=== PATIENT | female | born 1970 | race Caucasian/White ===

== ENCOUNTER 2017-04-09 03:48 | Observation (INO) | payer MEDICAID, OTHER ==
[~2017-04-09] VITALS: Ht 167.6 cm; Wt 65.0 kg
[~2017-04-09 03:48] MED LIST: ALBU8I INH; BUPR-197 PO; CLON0.5T PO; GABA100C4 PO; KETO10 PO; LORA10TA PO; OMEP20TA PO; ROBA750T3 PO; VICOTAB4 PO
[2017-04-09 03:52] VITALS: BP 177/90; PULSE 75; RESP 16; TEMP 97.6; O2SAT 100
[2017-04-09 04:17] VITALS: BP 158/79; PULSE 72; TEMP 98; O2SAT 99
[2017-04-09] MEDS ORDERED: OMEP20TA PO (04:32)
[2017-04-09] MEDS ORDERED: NEUR100C PO (04:32)
[2017-04-09] MEDS ORDERED: LEVO.075 PO (04:32)
[2017-04-09] MEDS ORDERED: HYDR7.5T76 PO (04:32)
[2017-04-09] MEDS ORDERED: VENTOLIN INH (04:32)
[2017-04-09] MEDS ORDERED: CLON1TAB PO (04:32)
[2017-04-09] MEDS ORDERED: BUPR100T4 PO (04:32)
[2017-04-09] MEDS ORDERED: CLAR10CA3 PO (04:32)
[2017-04-09] MEDS ORDERED: ROBA750T PO (04:32)
[2017-04-09] MEDS ORDERED: ASPIRIN 81 MG CHEW TAB CHEW ONE (04:45)
[2017-04-09] MEDS ORDERED: SODIUM CHLOR 0.9% 1000 ML INJ 1,000 ML IV ONE (04:45)
[2017-04-09] MEDS ORDERED: ONDANSETRON HCL 4 MG/2 ML VIAL IV ONE (04:45)
--- NOTE | 2017-04-09 04:57 | PD ---
HPI Chief Complaint: Chest Pain Time Seen by Provider: 04:29 Travel History International Travel<30 days: No Contact w/Intl Traveler<30days: No Traveled to known affect area: No History of Present Illness HPI The patient is a 46 year old female who presents to the [facility] emergency department with a history of chest pain that she reports awoke her from sound sleep at 2 AM this morning. She reports that the pain is in the left side of her chest. She reports that it is worse with taking a deep breath or touching the area. She denies any trauma to the area or any specific injury that she can recall. She does however incidentally reports that she may have been exposed to methamphetamine. 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 She reports that her client told her that the police came to the client's house 2-3 weeks ago and arrested people who were running a meth lab out of her garage. Her client was reportedly renting her garage out to these people. The patient reports that she did not cleaning the garage. She cleaned the house itself. She reports that she was in the house from 12 noon to 9 PM yesterday. She cleaned the client's kitchen and was concerned later that she did notice that there was a white powdery substance on the counters. She reports that her chest pain has been coming and going since awakening with it. She denies having any history of heart disease. She does however report having a history of hyperlipidemia. She denies any shortness of breath, diaphoresis, nausea, vomiting associated with this. Eyes having any radiation of the pain. She does incidentally report having diarrhea 2 days ago, 10 times in one day. She reports that she did have a formed bowel movement today. She denies having any blood in her stool or black or tarry stools. The patient denies any known recent fevers, cough, congestion, neck pain, abdominal pain, urinary symptoms, or neurologic symptoms. FORMERLY [facility] Past Medical History Narrative Medical The patient's past medical history is significant for fibromyalgia, tendonitis right elbow, anxiety and depression, arthritis, asthma, and acid reflux. PMD: Dr. Garcia. Arthritis: Yes Asthma: Yes Autoimmune Disease: Yes (FIBROMYALGIA) Bipolar Disorder: Yes Anxiety: Yes Depression: Yes Dementia: Yes Diabetes: No Diminished Hearing: No Fibromyalgia: Yes GERD: Yes Kidney Stones: Yes Musculoskeletal: Yes (CHRONIC BACK PAIN,DDD) Neurologic: Yes (fibromyalgia) Psychiatric: Yes ("MOOD SWINGS") Respiratory: Yes (ASHTMA) Integumentary: Yes (SHINGLES) Immunizations Current: Yes (HEPATITIS B 1-09) Pneumonia: Yes Triglycerides - High: Yes Tetanus Vaccination: < 5 Years Influenza Vaccination: No ?: Not LMP: now 04/09/17 : 4 Para: 3 Miscarriage: 1 : 0 Ovarian Cysts: Yes Past Surgical History Narrative Surgical cholecystectomy. Cholecystectomy: Yes Oral Surgery: Yes Social History Alcohol Use: Yes ("VERY RARELY") Tobacco Use: Yes (1 PPD) Substance Use: No Allergies-Medications (Allergen,Severity, Reaction): Coded Allergies: Flagyl (Verified Allergy, Severe, Anaphylaxis, 04/09/17) Morphine (Unverified Allergy, Severe, Itching, 04/09/17) Flexeril (Verified Adverse Reaction, Severe, VOMITING, 04/09/17) Naprosyn (Verified Adverse Reaction, Severe, VOMITING, 04/09/17) Erythromycin (Verified Adverse Reaction, Intermediate, UPSETS STOMACH, ) Reported Meds & Prescriptions Reported Meds & Active Scripts Active Reported Hydrocodone-Ibuprofen 7.5-200 Mg Tab 1 Tab PO Q6H PRN Clonazepam 1 Mg Tab 1 Mg PO BID Bupropion HCl 100 Mg Tab 150 Mg PO BID Neurontin (Gabapentin) 100 Mg Cap 100 Mg PO TID Claritin (Loratadine) 10 Mg Cap 10 Mg PO DAILY Omeprazole 20 Mg Tab 20 Mg PO DAILY Robaxin (Methocarbamol) 750 Mg Tab 1,500 Mg PO TID [Ventolin Hfa] 2 Puff INH Q4HR Synthroid (Levothyroxine Sodium) 75 Mcg Tab 75 Mcg PO DAILY Review of Systems Except as stated in HPI: all other systems reviewed are Neg General / Constitutional: No: Fever Eyes: No: Visual changes HENT: No: Headaches Cardiovascular: Positive: Chest Pain or Discomfort, Dyspnea on exertion Respiratory: No: Shortness of Breath Gastrointestinal: Positive: Diarrhea (2 days ago.), Indigestion, No: Nausea, Vomiting, Abdominal Pain Genitourinary: No: Dysuria Musculoskeletal: No: Pain Skin: Positive Itching, No Rash Neurologic: No: Weakness Psychiatric: No: Depression Endocrine: No: Polydipsia Hematologic/Lymphatic: No: Easy Bruising Physical Exam Narrative General: The patient is a well-developed well-nourished female in no acute distress.. Head and Neck exam: Head is normocephalic atraumatic. Eyes: EOMI, pupils are equal round and reactive to light. Nose: Midline septum with pink mucous membranes Mouth: Dentition unremarkable. Moist mucus membranes. Posterior oropharynx is not erythematous. No tonsillar hypertrophy. Uvula midline. Airway patent. Neck: No palpable lymphadenopathy. No nuchal rigidity. No thyromegaly. Cardiovascular: Regular rate and rhythm without murmurs, gallops, or rubs. The patient has chest wall tenderness on palpation the left side of her chest wall at the sternal border upper aspect. Wrist no crepitus or step-off. No erythema or ecchymosis. No pulse deficit to the extremities. Lungs: Clear to auscultation bilaterally. No wheezes, rhonchi, or rales. Abdomen: Soft, without tenderness to palpation in all 4 quadrants of the abdomen. No guarding, rebound, or rigidity. Negative Derry sign. Extremities: No clubbing, cyanosis, or edema. 2+ pulses in all 4 extremities. Back: No spinous process tenderness to palpation. No costovertebral angle tenderness to palpation. Neurologic Exam: Cranial nerves 2-12 were intact on exam. Strength is 5/5 in all 4 extremities. No sensory deficits noted. No dysdiadochokinesis. Good finger to nose and Heel to reid bilaterally. Skin Exam: No rash noted. Intact skin that is warm and dry. Data Data Last Documented VS Vital Signs Date Time Temp Pulse Resp B/P Pulse Ox O2 Delivery O2 Flow Rate FiO2 04/09/17 06:21 Room Air 04/09/17 04:20 98 04/09/17 04:17 98.0 72 158/79 04/09/17 03:52 16 Orders Complete Blood Count With Diff (04/09/17 04:31) Comprehensive Metabolic Panel (04/09/17 04:31) Creatine Kinase (Cpk) (04/09/17 04:31) Ckmb (Isoenzyme) Profile (04/09/17 04:31) Troponin I (04/09/17 04:31) Urinalysis - C+S If Indicated (04/09/17 04:31) Magnesium (Mg) (04/09/17 04:31) Chest, Single Ap (04/09/17 04:31) Iv Access Insert/Monitor (04/09/17 04:31) Ecg Monitoring (04/09/17 04:31) Oximetry (04/09/17 04:31) Ed Urine Pregnancytest Poc (04/09/17 04:31) Drug Screen, Random Urine (04/09/17 04:31) Ondansetron Inj (Zofran Inj) (04/09/17 04:45) Sodium Chlor 0.9% 1000 Ml Inj (Ns 1000 M (04/09/17 04:45) Aspirin Chew (Aspirin Chew) (04/09/17 04:45) CKMB (04/09/17 04:41) CKMB% (04/09/17 04:41) Admit Order (Ed Use Only) (04/09/17 06:53) Labs Laboratory Tests Test 04/09/17 04/09/17 04:41 05:14 White Blood Count 6.4 TH/MM3 Red Blood Count 4.06 MIL/MM3 Hemoglobin 12.6 GM/DL Hematocrit 35.9 % Mean Corpuscular Volume 88.4 FL Mean Corpuscular Hemoglobin 30.9 PG Mean Corpuscular Hemoglobin 35.0 % Concent Red Cell Distribution Width 13.8 % Platelet Count 186 TH/MM3 Mean Platelet Volume 8.4 FL Neutrophils (%) (Auto) 44.6 % Lymphocytes (%) (Auto) 42.7 % Monocytes (%) (Auto) 12.5 % Eosinophils (%) (Auto) 0.0 % Basophils (%) (Auto) 0.2 % Neutrophils # (Auto) 2.8 TH/MM3 Lymphocytes # (Auto) 2.7 TH/MM3 Monocytes # (Auto) 0.8 TH/MM3 Eosinophils # (Auto) 0.0 TH/MM3 Basophils # (Auto) 0.0 TH/MM3 CBC Comment DIFF FINAL Differential Comment Sodium Level 140 MEQ/L Potassium Level 3.3 MEQ/L Chloride Level 106 MEQ/L Carbon Dioxide Level 23.3 MEQ/L Anion Gap 11 MEQ/L Blood Urea Nitrogen 15 MG/DL Creatinine 0.73 MG/DL Estimat Glomerular Filtration 87 ML/MIN Rate Random Glucose 113 MG/DL Calcium Level 8.1 MG/DL Magnesium Level 1.7 MG/DL Total Bilirubin LESS THAN 0.1 MG/DL Aspartate Amino Transf 26 U/L (AST/SGOT) Alanine Aminotransferase 33 U/L (ALT/SGPT) Alkaline Phosphatase 75 U/L Total Creatine Kinase 209 U/L Creatine Kinase MB 3.5 NG/ML Creatine Kinase MB % 1.7 % Troponin I LESS THAN 0.02 NG/ML Total Protein 6.8 GM/DL Albumin 3.4 GM/DL Urine Color LIGHT-YELLOW Urine Turbidity CLEAR Urine pH 6.0 Urine Specific [place] 1.006 Urine Protein NEG mg/dL Urine Glucose (UA) NEG mg/dL Urine Ketones NEG mg/dL Urine Occult Blood MOD Urine Nitrite NEG Urine Bilirubin NEG Urine Urobilinogen LESS THAN 2.0 MG/DL Urine Leukocyte Esterase NEG Urine RBC LESS THAN 1 /hpf Urine WBC 2 /hpf Urine Squamous Epithelial 2 /hpf Cells Urine Bacteria RARE /hpf Microscopic Urinalysis Comment CULT NOT INDICATED Urine Opiates Screen POS Urine Barbiturates Screen NEG Urine Amphetamines Screen NEG Urine Benzodiazepines Screen NEG Urine Cocaine Screen NEG Urine Cannabinoids Screen NEG MDM Medical Decision Making Medical Screen Exam Complete: Yes Emergency Medical Condition: Yes Medical Record Reviewed: Yes Interpretation(s) Last Impressions Chest X-Ray 04/09/17 0431 Signed Impressions: Service Date/Time: Sunday, April 09, 2017 04:33 - CONCLUSION: No acute cardiopulmonary abnormality is identified. Subtle sclerosis in the left proximal humerus. Although nonspecific an enchondroma could have this appearance. Geovani Romo MD Differential Diagnosis Meth exposure, versus other toxin exposure, versus acute coronary syndrome, versus costochondritis, versus pleurisy, versus pneumonia Narrative Course During the course of the patients emergency department visit, the patients history, examination, and differential diagnosis were reviewed with the patient. The patient had IV access obtained and blood work sent for analysis. The patient was placed on a cardiac rehabilitation program director with oximetry and blood pressure monitoring. An ECG was done on arrival. The patient's ECG reveals a sinus rhythm with a short ID interval, heart rate of 72, no acute ST segment elevation or depression, T waves are inverted in lead 3, aVF, V1. The patient was initially provided aspirin 162 mg by mouth 1, normal saline 1 L IV fluid bolus, Zofran 4 mg IV. The patients laboratory studies were reviewed and remarkable for white count of 6.4, hemoglobin 12.6, platelets 186 with 12.5 monocytes, CMP is remarkable for potassium of 3.3 which will be supplemented orally, glucose 113, calcium 8.1 , total bilirubin less than 0.1, CPK 209, troponin I less than 0.02, urine drug screen is positive for opiates, the patient is on opiates related to her fibromyalgia. Urinalysis shows moderate occult blood, 2 wbc's, rbc's less than 1. Radiology studies were reviewed and remarkable for a chest x-ray that shows no acute cardiopulmonary abnormality. Subtle sclerosis in the left proximal humerus although nonspecific an enchondroma could have this appearance. The patient will be admitted to the chest pain center for rule out serial cardiac enzyme protocol. The patient denies ever having stress testing done previously. She does report having a history of hyperlipidemia. The patients results were discussed with the patient, including the plan of care. I explained that further testing and/ or monitoring is indicated based on the patients history, examination, and/ or laboratory findings. Therefore, I recommended admission for additional evaluation. The patient expressed understanding and was agreeable with this plan. The patient was admitted to the hospital in stable condition and sent to a bed under the care of the chest pain center. Diagnosis Primary Impression: Chest pain, rule out acute myocardial infarction Admitting Information Admitting Physician Requests: Observation Tasneem Toussaint MD Apr 09, 2017 04:56
[2017-04-09 04:58] LABS: AUTOMATED NEUTROPHIL # 2.8 TH/MM3 (1.8-7.7); BASOPHIL % 0.2 % (0.0-2.0); HEMATOCRIT 35.9 % (35.0-46.0); HEMO FLAGS DIFF FINAL; LYMPH % 42.7 % (9.0-44.0); LYMPHOCYTE # 2.7 TH/MM3 (1.0-4.8); MEAN CELL VOLUME 88.4 FL (80.0-100.0); MEAN CORPUSCULAR HEMOGLOBIN 30.9 PG (27.0-34.0); MONO % 12.5 % (0.0-8.0); NEUT % 44.6 % (16.0-70.0); PLATELET COUNT 186 TH/MM3 (150-450); RED BLOOD COUNT 4.06 MIL/MM3 (4.00-5.30); RED CELL DISTRIBUTION WIDTH 13.8 % (11.6-17.2); WHITE BLOOD COUNT 6.4 TH/MM3 (4.0-11.0)
--- NOTE | 2017-04-09 05:02 | RADRPT ---
EXAM DATE/TIME: 04/09/2017 04:33 [facility] COMPARISON: No previous studies available for comparison. INDICATIONS : Pt has sore throat and nausea x 2 days MEDICAL HISTORY : None. SURGICAL HISTORY : None. ENCOUNTER: Initial ACUITY: 2 days PAIN SCORE: 6/10 LOCATION: Bilateral chest FINDINGS: Portable AP view of the chest demonstrates a normal-sized cardiac silhouette. No effusion, consolidat ion, or pneumothorax is visualized. The bones and soft tissues demonstrate no acute abnormality. Ther e is an area of sclerosis in the left proximal humeral metaphysis. CONCLUSION: No acute cardiopulmonary abnormality is identified. Subtle sclerosis in the left proximal humerus. Al though nonspecific an enchondroma could have this appearance. Geovani Romo MD on April 09, 2017 at 4:59 Board Certified Radiologist. This report was verified electronically.
[2017-04-09 05:23] LABS: ALT (GPT) 33 U/L (10-53); ANION GAP 11 MEQ/L (5-15); AST (GOT) 26 U/L (15-37); BICARBONATE 23.3 MEQ/L (21.0-32.0); BLOOD UREA NITROGEN 15 MG/DL (7-18); CHLORIDE 106 MEQ/L (98-107); GLOMERULAR FILTRATION RATE 87 ML/MIN (>89); MAGNESIUM 1.7 MG/DL (1.5-2.5); POTASSIUM 3.3 MEQ/L (3.5-5.1); SODIUM (NA) 140 MEQ/L (136-145)
[2017-04-09 05:26] LABS: ALKALINE PHOSPHATASE 75 U/L (45-117); CREATINE KINASE 209 U/L (26-192); TOTAL BILIRUBIN ADULT LESS THAN 0.1 MG/DL (0.2-1.0)
[2017-04-09 05:35] LABS: BACTERIA, URINE RARE /hpf; BLOOD, URINE MOD (NEG); COMMENT (UR) CULT NOT INDICATED; CULTURE IF INDICATED CULT NOT INDICATED; GLUCOSE,URINE NEG (NEG); KETONE, URINE NEG (NEG); NITRITE,URINE NEG (NEG); SQUAMOUS EPITHELIAL CELL URINE 2 /hpf (0-5); URINE COLOR LIGHT-YELLOW (YELLW/STRAW)
[2017-04-09 05:38] LABS: CKMB 3.5 NG/ML (0.5-3.6)
[2017-04-09 05:40] LABS: AMPHETAMINE, URINE NEG (NEG); BARBITURATES, URINE NEG (NEG); COCAINE, URINE NEG (NEG)
[2017-04-09 07:32] VITALS: BP 131/60; PULSE 55; RESP 18; O2SAT 99
[2017-04-09] MEDS ORDERED: POTASSIUM CHLORIDE 20 MEQ CONTROLLED RELEASE TAB PO ONE (08:00)
--- NOTE | 2017-04-09 08:39 | EKG ---
Date Performed: 04/09/2017 Time Performed: 04:15:34 PTAGE: 46 years EKG: Sinus rhythm WITH SHORT DC INTERVAL MINIMAL VOLTAGE CRITERIA FOR LVH, CONSIDER NORMAL VARIANT BORDERLINE ECG NO PREVIOUS TRACING DOCTOR: Patricio Mccarty Interpretating Date/Time 04/09/2017 08:39:20
[2017-04-09 10:52] VITALS: BP 129/76; PULSE 66; RESP 16; TEMP 98; O2SAT 100
--- NOTE | 2017-04-09 11:48 | HHI.DCPOC ---
Discharge Care Plan Diagnosis: (1) Chest pain, atypical Goals to Promote Your Health * To prevent worsening of your condition and complications * To maintain your health at the optimal level Directions to Meet Your Goals Take your medications as prescribed Follow your dietary instruction Follow activity as directed Keep your appointments as scheduled Take your immunizations and boosters as scheduled If your symptoms worsen call your PCP, if no PCP go to Urgent Care Center or Emergency Room Smoking is Dangerous to Your Health. Avoid second hand smoke Call the 24-hour hour crisis hotline for domestic abuse at Jason Mantilla Apr 09, 2017 11:48
--- NOTE | 2017-04-09 12:00 | HHI.HP ---
HPI Primary Care Physician Rakesh Keith DO Chief Complaint Chest pain History of Present Illness This is a 46-year-old female that presents to ED with a complaint of chest discomfort. Patient states "I get anxiety a lot." States that about 2:00 this morning she awoke with a pressure in left upper chest. She thought it was anxiety and took one of her anxiety medications but it did not help so she came to the ED. While in the ED she also had her daughter evaluated for UTI. Her daughter is in the bed lying with rotation at this time. The patient states the discomfort is still present. Worsened with certain movements. She works as a director trial but cannot recall any injury that may have caused the discomfort. Denies shortness breath, nausea, or diaphoresis. Review of Systems General: Patient denies fevers, chills recent, and recent travel HEENT: Patient denies headache, sore throat, difficulty swallowing. Cardiovascular: Has the chest discomfort as mentioned above. Denies sensation of heart beating rapidly or irregularly. No syncope. Denies diaphoresis. Respiratory: Denies shortness of breath or inspirational chest discomfort. Denies coughing wheezing or hemoptysis. GI: Patient denies nausea, vomiting, diarrhea, abdominal pain, bloody stools. Musculoskeletal: Patient denies joint pain or edema. Denies calf pain or edema. Neurovascular: Patient denies numbness, tingling, weakness in extremities. Denies headache. Endocrine: Denies polyuria and polydipsia. Hematologic: Denies easy bruising. Skin: Denies rash or itching. Past Family Social History Allergies: Coded Allergies: Flagyl (Verified Allergy, Severe, Anaphylaxis, 04/09/17) Morphine (Unverified Allergy, Severe, Itching, 04/09/17) Flexeril (Verified Adverse Reaction, Severe, VOMITING, 04/09/17) Naprosyn (Verified Adverse Reaction, Severe, VOMITING, 04/09/17) Erythromycin (Verified Adverse Reaction, Intermediate, UPSETS STOMACH, ) Past Medical History Anxiety, hyperlipidemia,, fibromyalgia. Denies hypertension diabetes and known CAD. Past Surgical History Noncontributory. Reported Medications Reported Meds & Active Scripts Active Reported Hydrocodone-Ibuprofen 7.5-200 Mg Tab 1 Tab PO Q6H PRN Clonazepam 1 Mg Tab 1 Mg PO BID Bupropion HCl 100 Mg Tab 150 Mg PO BID Neurontin (Gabapentin) 100 Mg Cap 100 Mg PO TID Claritin (Loratadine) 10 Mg Cap 10 Mg PO DAILY Omeprazole 20 Mg Tab 20 Mg PO DAILY Robaxin (Methocarbamol) 750 Mg Tab 1,500 Mg PO TID [Ventolin Hfa] 2 Puff INH Q4HR Synthroid (Levothyroxine Sodium) 75 Mcg Tab 75 Mcg PO DAILY Family History Not aware family history of CAD. Social History Patient smokes about one pack of cigarettes daily. Has rare alcohol. Denies illicit drugs. Physical Exam Vital Signs Vital Signs Date Time Temp Pulse Resp B/P Pulse Ox O2 Delivery O2 Flow Rate FiO2 04/09/17 10:52 98.0 66 16 129/76 100 04/09/17 07:32 55 18 131/60 99 Room Air 04/09/17 06:21 Room Air 04/09/17 04:20 98 Room Air 04/09/17 04:17 98.0 72 158/79 99 Room Air 04/09/17 03:52 97.6 75 16 177/90 100 Room Air Physical Exam GENERAL: This is a well-nourished, well-developed patient, in no apparent distress. Patient speaks in clear complete sentences. Patient is pleasant. Her daughter is lying in the hospital bed as well. HEENT: Head is atraumatic and normocephalic. Neck is supple without lymphadenopathy and trachea is midline. No JVD or carotid bruits. CARDIOVASCULAR: Regular rate and rhythm without murmurs, gallops, or rubs. RESPIRATORY: Clear to auscultation. Breath sounds equal bilaterally. No wheezes , rales, or rhonchi. Chest wall is tender worsening the symptoms she has been having. No use of accessory muscles. GASTROINTESTINAL: Abdomen is nontender, nondistended. Abdomen soft. No obvious pulsatile mass or bruit. No CVA tenderness. Strong femoral pulses bilaterally. Normal bowel sounds in all quadrants. MUSCULOSKELETAL: Patient is moving upper and lower extremities freely. No calf tenderness or edema, no Homans sign. Strong pulses in upper and lower extremities. NEUROLOGICAL: Patient is alert and oriented. Cranial nerves 2-12 are grossly intact. No focal deficits and speech is clear. SKIN: No rash and turgor is normal. Laboratory Laboratory Tests Test 04/09/17 04/09/17 04/09/17 04:41 05:14 08:25 White Blood Count 6.4 Red Blood Count 4.06 Hemoglobin 12.6 Hematocrit 35.9 Mean Corpuscular Volume 88.4 Mean Corpuscular Hemoglobin 30.9 Mean Corpuscular Hemoglobin 35.0 Concent Red Cell Distribution Width 13.8 Platelet Count 186 Mean Platelet Volume 8.4 Neutrophils (%) (Auto) 44.6 Lymphocytes (%) (Auto) 42.7 Monocytes (%) (Auto) 12.5 Eosinophils (%) (Auto) 0.0 Basophils (%) (Auto) 0.2 Neutrophils # (Auto) 2.8 Lymphocytes # (Auto) 2.7 Monocytes # (Auto) 0.8 Eosinophils # (Auto) 0.0 Basophils # (Auto) 0.0 CBC Comment DIFF FINAL Differential Comment Sodium Level 140 Potassium Level 3.3 Chloride Level 106 Carbon Dioxide Level 23.3 Anion Gap 11 Blood Urea Nitrogen 15 Creatinine 0.73 Estimat Glomerular Filtration 87 Rate Random Glucose 113 Calcium Level 8.1 Magnesium Level 1.7 Total Bilirubin LESS THAN 0.1 Aspartate Amino Transf 26 (AST/SGOT) Alanine Aminotransferase 33 (ALT/SGPT) Alkaline Phosphatase 75 Total Creatine Kinase 209 Creatine Kinase MB 3.5 Creatine Kinase MB % 1.7 Troponin I LESS THAN 0.02 LESS THAN 0.02 Total Protein 6.8 Albumin 3.4 Urine Color LIGHT-YELLOW Urine Turbidity CLEAR Urine pH 6.0 Urine Specific [place] 1.006 Urine Protein NEG Urine Glucose (UA) NEG Urine Ketones NEG Urine Occult Blood MOD Urine Nitrite NEG Urine Bilirubin NEG Urine Urobilinogen LESS THAN 2.0 Urine Leukocyte Esterase NEG Urine RBC LESS THAN 1 Urine WBC 2 Urine Squamous Epithelial 2 Cells Urine Bacteria RARE Microscopic Urinalysis Comment CULT NOT INDICATED Urine Opiates Screen POS Urine Barbiturates Screen NEG Urine Amphetamines Screen NEG Urine Benzodiazepines Screen NEG Urine Cocaine Screen NEG Urine Cannabinoids Screen NEG Result Diagram: 04/09/171 04/09/17440 Imaging Last 24 hours Impressions Chest X-Ray 04/09/17 043 Signed Impressions: Service Date/Time: Sunday, April 09, 2017 04:33 - CONCLUSION: No acute cardiopulmonary abnormality is identified. Subtle sclerosis in the left proximal humerus. Although nonspecific an enchondroma could have this appearance. Geovani Romo MD Course EKGs are sinus rhythm without significant ST segment depressions or elevations. Assessment and Plan Assessment and Plan * Atypical chest pain: Patient has had serial cardiac enzymes and EKGs for ruling out purposes. She was seen by Dr. Dunbar cardiology in the chest and center. Her discomfort is atypical and appears musculoskeletal nature and will be discharged home at this time. States she has anti-inflammatories on that she can take. She should follow-up with her primary care physician. * Tobacco abuse: Patient has been counseled on importance of smoking cessation. Patient stable at this time. She is agreeable to this plan. Jason Mantilla Apr 09, 2017 12:00
[2017-04-10] MEDS ORDERED: VENTAER INH (11:27)
--- NOTE | 2017-04-10 12:08 | EKG ---
Date Performed: 04/09/2017 Time Performed: 08:09:08 PTAGE: 46 years EKG: SINUS BRADYCARDIA WITH SINUS ARRHYTHMIA BORDERLINE ECG Compared to prior tracing no signifi cant change DOCTOR: Isaiah Toussaint Interpretating Date/Time 04/10/2017 12:06:39
== END 2017-04-09 12:57 | disposition home or self-care (01) ==
LOC: NEPE 03:48 → NEDA 06:54 → NEPGCP 08:29
DX: R07.89 Other chest pain (principal); R31.9 Hematuria, unspecified; I49.8 Other specified cardiac arrhythmias; R00.1 Bradycardia, unspecified; J02.9 Acute pharyngitis, unspecified; R11.0 Nausea; R19.7 Diarrhea, unspecified; J45.909 Unspecified asthma, uncomplicated; E78.5 Hyperlipidemia, unspecified; M79.7 Fibromyalgia; F41.9 Anxiety disorder, unspecified; F31.9 Bipolar disorder, unspecified; K21.9 Gastro-esophageal reflux disease without esophagitis; F03.90 Unspecified dementia, unspecified severity, without behavioral disturbance, psychotic disturbance, mood disturbance, and anxiety; M54.9 Dorsalgia, unspecified; G89.29 Other chronic pain; M19.90 Unspecified osteoarthritis, unspecified site; Z79.899 Other long term (current) drug therapy; F17.210 Nicotine dependence, cigarettes, uncomplicated
CPT/HCPCS: 71010; 80053; 80307; 81001; 82550; 82552; 83735; 84484; 84703; 85025; 93005; 96361; 96374; 99285; G0378; J2405; J7030

== ENCOUNTER 2017-09-12 23:30 | Emergency (ER) | payer OTHER ==
[~2017-09-12] VITALS: Ht 165.1 cm; Wt 77.7 kg
[~2017-09-12 23:30] MED LIST changes: -ALBU8I INH; -BUPR-197 PO; +BUPR100T4 PO; +CLAR10CA3 PO; -CLON0.5T PO; +CLON1TAB PO; -GABA100C4 PO; +HYDR7.5T76 PO; -KETO10 PO; +LEVO.075 PO; -LORA10TA PO; +NEUR100C PO; -OMEP20TA PO; +OMEP20TA93 PO; +ROBA750T PO; -ROBA750T3 PO; +VENTAER INH; -VICOTAB4 PO
[2017-09-12 23:39] VITALS: BP 146/69; PULSE 61; RESP 18; TEMP 98.2; O2SAT 97
[2017-09-13] MEDS ORDERED: SODIUM CHLORIDE 0.9% FLUSH 10 ML FLUSH IVF PRN (01:15)
[2017-09-13 01:27] LABS: AUTOMATED NEUTROPHIL # 4.9 TH/MM3 (1.8-7.7); BASOPHIL % 0.2 % (0.0-2.0); HEMOGLOBIN 12.9 GM/DL (11.6-15.3); LYMPH % 34.9 % (9.0-44.0); LYMPHOCYTE # 2.9 TH/MM3 (1.0-4.8); MEAN CELL VOLUME 88.8 FL (80.0-100.0); MEAN CORPUSCULAR HEMOGLOBIN 30.1 PG (27.0-34.0); MEAN CORPUSCULAR HGB CONC 33.9 % (32.0-36.0); MEAN PLATELET VOLUME 8.4 FL (7.0-11.0); MONO % 7.6 % (0.0-8.0); MONOCYTE # 0.6 TH/MM3 (0-0.9); NEUT % 57.3 % (16.0-70.0); PLATELET COUNT 205 TH/MM3 (150-450); RED BLOOD COUNT 4.28 MIL/MM3 (4.00-5.30); RED CELL DISTRIBUTION WIDTH 12.8 % (11.6-17.2); WHITE BLOOD COUNT 8.4 TH/MM3 (4.0-11.0)
[2017-09-13 01:48] VITALS: BP 112/70; PULSE 56; RESP 16; O2SAT 10; O2SAT 100
[2017-09-13 01:49] LABS: TROPONIN I LESS THAN 0.02 NG/ML (0.02-0.05)
--- NOTE | 2017-09-13 01:57 | RADRPT ---
EXAM DATE/TIME: 09/13/2017 01:38 [facility] COMPARISON: CHEST SINGLE AP, April 09, 2017, 4:33. INDICATIONS : Chest pain. MEDICAL HISTORY : Asthma. SURGICAL HISTORY : None. ENCOUNTER: Initial ACUITY: 2 weeks PAIN SCORE: 4/10 LOCATION: Bilateral chest FINDINGS: The lungs are clear without infiltrate, nodule, or mass. There is no appreciable pleural effusion fo r technique. Heart and mediastinum are unremarkable. CONCLUSION: No acute cardiopulmonary disease. Jazzmine Encarnacion MD on September 13, 2017 at 1:55 Board Certified Radiologist. This report was verified electronically.
--- NOTE | 2017-09-13 02:31 | PD ---
HPI Chief Complaint: Musculoskeletal Complaint Time Seen by Provider: 00:58 Travel History International Travel<30 days: No Contact w/Intl Traveler<30days: No Traveled to known affect area: No History of Present Illness HPI This is a 47-year-old female who is a poor historian who presents to the emergency department reporting 1 week of left-sided chest discomfort, constant, mild, associated with some tingling in her left arm, swelling in her legs and swelling in her throat. She says she hasn't felt right for several months. She saw her primary care doctor at the beginning of August and he recommended she get blood work and a pelvic ultrasound. She hasn't had any of this done. PFSH Past Medical History Arthritis: Yes Asthma: Yes Autoimmune Disease: Yes (FIBROMYALGIA) Bipolar Disorder: Yes Anxiety: Yes Depression: Yes Dementia: Yes Diabetes: No Diminished Hearing: No Fibromyalgia: Yes GERD: Yes Kidney Stones: Yes Musculoskeletal: Yes (CHRONIC BACK PAIN,DDD) Neurologic: Yes (fibromyalgia) Psychiatric: Yes ("MOOD SWINGS") Respiratory: Yes (ASTHMA) Integumentary: Yes (SHINGLES) Immunizations Current: Yes (HEPATITIS B -) Pneumonia: Yes Triglycerides - High: Yes Influenza Vaccination: No ?: Unknown LMP: 08/16/17 : 4 Para: 3 Miscarriage: 1 : 0 Ovarian Cysts: Yes Past Surgical History Cholecystectomy: Yes Oral Surgery: Yes Social History Alcohol Use: Yes ("VERY RARELY") Tobacco Use: Yes (1 PPD) Substance Use: No Allergies-Medications (Allergen,Severity, Reaction): Coded Allergies: metronidazole (Unverified Allergy, Severe, Anaphylaxis, 09/13/17) morphine (Unverified Allergy, Severe, Itching, 09/13/17) cyclobenzaprine (Unverified Adverse Reaction, Severe, VOMITING, 09/13/17) naproxen (Unverified Adverse Reaction, Severe, VOMITING, 09/13/17) erythromycin base (Unverified Adverse Reaction, Intermediate, UPSETS STOMACH, 09/13/17) Reported Meds & Prescriptions Reported Meds & Active Scripts Active Reported Ventolin Hfa 18 GM Inh (Albuterol Sulfate) 90 Mcg/Act Aer 2 Puff INH Q4H Hydrocodone-Ibuprofen 7.5-200 Mg Tab 1 Tab PO Q6H PRN Clonazepam 1 Mg Tab 1 Mg PO BID Bupropion HCl 100 Mg Tab 150 Mg PO BID Neurontin (Gabapentin) 100 Mg Cap 100 Mg PO TID Claritin (Loratadine) 10 Mg Cap 10 Mg PO DAILY Omeprazole 20 Mg Tab 20 Mg PO DAILY Robaxin (Methocarbamol) 750 Mg Tab 1,500 Mg PO TID Synthroid (Levothyroxine Sodium) 75 Mcg Tab 75 Mcg PO DAILY Review of Systems Except as stated in HPI: all other systems reviewed are Neg Physical Exam Narrative GENERAL:Well appearing, no acute distress SKIN: Focused skin assessment warm and dry. HEAD: Atraumatic. Normocephalic. EYES: Pupils equal and round. No injection or drainage. ENT: Moist mucous membranes NECK: Trachea midline. CARDIOVASCULAR: Regular rate and rhythm. No murmur appreciated. RESPIRATORY: Clear to auscultation. Breath sounds equal bilaterally. GASTROINTESTINAL: Abdomen soft, non-tender, nondistended. MUSCULOSKELETAL: No obvious deformities. NEUROLOGICAL: Awake and alert. No obvious cranial nerve deficits. Moving all extremities. PSYCHIATRIC: Tangential, anxious with some pressured speech Data Data Last Documented VS Vital Signs Date Time Temp Pulse Resp B/P (MAP) Pulse Ox O2 Delivery O2 Flow Rate FiO2 09/13/17 01:48 100 Room Air 09/13/17 01:48 112/70 (84) 09/13/17 01:48 56 16 09/12/17 23:39 98.2 Orders Orders Electrocardiogram (09/13/17 01:15) Complete Blood Count With Diff (09/13/17 01:15) Troponin I (09/13/17 01:15) Chest, Single Ap (09/13/17 01:15) Ecg Monitoring (09/13/17 01:15) Bilateral Bp Monitoring (09/13/17 01:15) Iv Access Insert/Monitor (09/13/17 01:15) Oximetry (09/13/17 01:15) Oxygen Administration (09/13/17 01:15) Sodium Chloride 0.9% Flush (Ns Flush) (09/13/17 01:15) Thyroid Stimulating Hormone (09/13/17 01:15) Comprehensive Metabolic Panel (09/13/17 01:20) Labs Laboratory Tests Test 09/13/17 01:20 White Blood Count 8.4 TH/MM3 Red Blood Count 4.28 MIL/MM3 Hemoglobin 12.9 GM/DL Hematocrit 38.0 % Mean Corpuscular Volume 88.8 FL Mean Corpuscular Hemoglobin 30.1 PG Mean Corpuscular Hemoglobin Concent 33.9 % Red Cell Distribution Width 12.8 % Platelet Count 205 TH/MM3 Mean Platelet Volume 8.4 FL Neutrophils (%) (Auto) 57.3 % Lymphocytes (%) (Auto) 34.9 % Monocytes (%) (Auto) 7.6 % Eosinophils (%) (Auto) 0.0 % Basophils (%) (Auto) 0.2 % Neutrophils # (Auto) 4.9 TH/MM3 Lymphocytes # (Auto) 2.9 TH/MM3 Monocytes # (Auto) 0.6 TH/MM3 Eosinophils # (Auto) 0.0 TH/MM3 Basophils # (Auto) 0.0 TH/MM3 CBC Comment DIFF FINAL Differential Comment Blood Urea Nitrogen 11 MG/DL Creatinine 0.66 MG/DL Random Glucose 102 MG/DL Total Protein 6.9 GM/DL Albumin 3.6 GM/DL Calcium Level 8.2 MG/DL Alkaline Phosphatase 75 U/L Aspartate Amino Transf (AST/SGOT) 25 U/L Alanine Aminotransferase (ALT/SGPT) 28 U/L Total Bilirubin 0.3 MG/DL Sodium Level 137 MEQ/L Potassium Level 3.5 MEQ/L Chloride Level 103 MEQ/L Carbon Dioxide Level 26.5 MEQ/L Anion Gap 8 MEQ/L Estimat Glomerular Filtration Rate 97 ML/MIN Troponin I LESS THAN 0.02 NG/ML Thyroid Stimulating Hormone 3rd Gen 5.670 uIU/ML MDM Medical Decision Making Medical Screen Exam Complete: Yes Emergency Medical Condition: Yes Interpretation(s) Afebrile, no tachycardia, hypertensive No leukocytosis Electrolytes are reassuring TSH is 5.6 Troponin is normal EKG: Normal sinus rhythm, isolated T-wave inversion in lead 3 similar to prior EKG from March 2017 Differential Diagnosis Acute coronary syndrome, anxiety, costochondritis, pneumonia, hyperthyroidism Narrative Course This is a 47-year-old female who presents to the emergency department with multiple complaints which are nonspecific including chest pain, throat swelling , leg swelling and anxiety. She was placed on a monitor and an IV was established. Labs are reassuring with the exception of an elevated TSH. Her chest pain is atypical, has been constant for a week, troponin is normal, and her EKG is similar to prior so I doubt this is an acute coronary syndrome. Her TSH is slightly elevated. This may explain some of her anxiety symptoms. I think it's reasonable to increase her Synthroid. Otherwise I think she can follow-up with her primary care physician. Diagnosis Primary Impression: Hypothyroidism Qualified Codes: E03.9 - Hypothyroidism, unspecified Patient Instructions: General Instructions Additional Instructions: If you develop severe chest pain, shortness of breath, sweating, lightheadedness , dizziness or difficulty breathing return to the emergency department immediately. Followup with your primary care physician in 2-3 days if your symptoms are not resolved. Change your Synthroid from 75 g a day to 100 g per day. Follow-up with your primary care physician. Med/Other Pt SpecificInfo: Prescription(s) given Scripts Levothyroxine (Synthroid) 100 Mcg Tab 100 MCG PO DAILY for Thyroid, #30 TAB 0 Refills Prov: Eri Cameron MD 09/13/17 Disposition: DISCHARGE HOME Condition: Stable Eri Cameron MD Sep 13, 2017 02:31
[2017-09-13 02:32] LABS: BLOOD UREA NITROGEN 11 MG/DL (7-18); CALCIUM 8.2 MG/DL (8.5-10.1); CHLORIDE 103 MEQ/L (98-107); SODIUM (NA) 137 MEQ/L (136-145)
[2017-09-13 02:33] LABS: ALBUMIN 3.6 GM/DL (3.4-5.0); BICARBONATE 26.5 MEQ/L (21.0-32.0); GLUCOSE,RANDOM 102 MG/DL (74-106)
[2017-09-13 02:35] LABS: ALT (GPT) 28 U/L (10-53); AST (GOT) 25 U/L (15-37); CREATININE 0.66 MG/DL (0.50-1.00); GLOMERULAR FILTRATION RATE 97 ML/MIN (>89)
[2017-09-13 02:36] LABS: TOTAL BILIRUBIN ADULT 0.3 MG/DL (0.2-1.0); TOTAL PROTEIN 6.9 GM/DL (6.4-8.2)
[2017-09-13 02:37] LABS: ALKALINE PHOSPHATASE 75 U/L (45-117)
[2017-09-13] MEDS ORDERED: LEVO.1 PO (02:52)
[2017-09-13 02:55] VITALS: BP 134/80
--- NOTE | 2017-09-13 22:39 | EKG ---
Date Performed: 09/13/2017 Time Performed: 01:32:12 PTAGE: 47 years EKG: SINUS BRADYCARDIA WITH SHORT WI INTERVAL BORDERLINE ECG PREVIOUS TRACING : 04/09/2017 08.09 Compared to the previous tracing sinus bradycardia is new DOCTOR: Mihir Downey Interpretating Date/Time 09/13/2017 22:37:14
== END 2017-09-13 03:03 | disposition home or self-care (01) ==
LOC: PHED 23:30
DX: E03.9 Hypothyroidism, unspecified (principal); R94.31 Abnormal electrocardiogram [ECG] [EKG]; M79.7 Fibromyalgia; F17.210 Nicotine dependence, cigarettes, uncomplicated
CPT/HCPCS: 71010; 80053; 84443; 84484; 85025; 93005; 99285

== ENCOUNTER 2017-10-16 00:19 | Emergency (ER) | payer MEDICAID, OTHER ==
[~2017-10-16] VITALS: Ht 165.1 cm; Wt 76.3 kg
[~2017-10-16 00:19] MED LIST changes: +LEVO.1 PO
[2017-10-16 01:03] VITALS: BP 102/57; PULSE 65; RESP 18; TEMP 98.3; O2SAT 97
[2017-10-16 02:36] VITALS: O2SAT 97
[2017-10-16 04:05] VITALS: BP 110/64; PULSE 68; RESP 18; O2SAT 97
--- NOTE | 2017-10-16 04:30 | PD ---
HPI Chief Complaint: Cold / Flu Symptoms Time Seen by Provider: 04:00 Travel History International Travel<30 days: No Contact w/Intl Traveler<30days: No Traveled to known affect area: No History of Present Illness HPI The patient is a 47-year-old female that complains of a persistent cough for about 2-3 days. She did smoke 2 packs a day but quit 5 days ago. She denies any diabetes or major medical problems except for hypothyroidism. She denies any fever. She does have generalized myalgias. She does have wheezes on occasion. PFSH Past Medical History Arthritis: Yes Asthma: Yes Autoimmune Disease: Yes (FIBROMYALGIA) Bipolar Disorder: Yes Anxiety: Yes Depression: Yes Dementia: Yes Diabetes: No Diminished Hearing: No Fibromyalgia: Yes GERD: Yes Kidney Stones: Yes Musculoskeletal: Yes (CHRONIC BACK PAIN,DDD) Neurologic: Yes (fibromyalgia) Psychiatric: Yes ("MOOD SWINGS") Respiratory: Yes (ASTHMA) Integumentary: Yes (SHINGLES) Immunizations Current: Yes (HEPATITIS B 09-25) Pneumonia: Yes Triglycerides - High: Yes Tetanus Vaccination: < 5 Years Influenza Vaccination: Yes ?: Unknown LMP: 09/24/17 : 4 Para: 3 Miscarriage: 1 : 0 Ovarian Cysts: Yes Past Surgical History Cholecystectomy: Yes Oral Surgery: Yes Social History Alcohol Use: Yes ("VERY RARELY") Tobacco Use: Yes (1 PPD) Substance Use: No Allergies-Medications (Allergen,Severity, Reaction): Coded Allergies: metronidazole (Unverified Allergy, Severe, Anaphylaxis, 10/16/17) morphine (Unverified Allergy, Severe, Itching, 10/16/17) cyclobenzaprine (Unverified Adverse Reaction, Severe, VOMITING, 10/16/17) naproxen (Unverified Adverse Reaction, Severe, VOMITING, 10/16/17) erythromycin base (Unverified Adverse Reaction, Intermediate, UPSETS STOMACH, 10/16/17) Reported Meds & Prescriptions Reported Meds & Active Scripts Active Synthroid (Levothyroxine Sodium) 100 Mcg Tab 100 Mcg PO DAILY Reported Ventolin Hfa 18 GM Inh (Albuterol Sulfate) 90 Mcg/Act Aer 2 Puff INH Q4H Hydrocodone-Ibuprofen 7.5-200 Mg Tab 1 Tab PO Q6H PRN Clonazepam 1 Mg Tab 1 Mg PO BID Bupropion HCl 100 Mg Tab 150 Mg PO BID Neurontin (Gabapentin) 100 Mg Cap 100 Mg PO TID Claritin (Loratadine) 10 Mg Cap 10 Mg PO DAILY Omeprazole 20 Mg Tab 20 Mg PO DAILY Robaxin (Methocarbamol) 750 Mg Tab 1,500 Mg PO TID Synthroid (Levothyroxine Sodium) 75 Mcg Tab 75 Mcg PO DAILY Review of Systems Except as stated in HPI: all other systems reviewed are Neg Physical Exam Narrative GENERAL: The patient is alert, oriented 3 in no respiratory distress. Her vital signs are normal. SKIN: Focused skin assessment warm/dry. No skin rash is seen. HEAD: Atraumatic. Normocephalic. EYES: Pupils equal and round. No scleral icterus. No injection or drainage. ENT: No nasal bleeding or discharge. Mucous membranes pink and moist. NECK: Trachea midline. No JVD. CARDIOVASCULAR: Regular rate and rhythm. No murmur appreciated. RESPIRATORY: No accessory muscle use. Clear to auscultation except for one wheeze on deep inspiration. Breath sounds equal bilaterally. GASTROINTESTINAL: Abdomen soft, non-tender, nondistended. Hepatic and splenic margins not palpable. MUSCULOSKELETAL: No obvious deformities. No clubbing. No cyanosis. No edema. NEUROLOGICAL: Awake and alert. No obvious cranial nerve deficits. Motor grossly within normal limits. Normal speech. PSYCHIATRIC: Appropriate mood and affect; insight and judgment normal. Data Data Last Documented VS Vital Signs Date Time Temp Pulse Resp B/P (MAP) Pulse Ox O2 Delivery O2 Flow Rate FiO2 10/16/17 04:05 68 18 110/64 (79) 97 Room Air 10/16/17 01:03 98.3 Orders Orders Influenzae A/B Antigen (10/16/17 04:00) [facility] Medical Decision Making Medical Screen Exam Complete: Yes Emergency Medical Condition: Yes Medical Record Reviewed: Yes Interpretation(s) The influenza A/B antigen is negative for flu a and flu B antigen. Differential Diagnosis Flu syndrome, nonspecific viral syndrome, bronchitis with bronchospasm, hypoxemia-unlikely Narrative Course The patient appears to have a bronchitis with bronchospasm. This does not appear to be the flu. Plan: Rest and increased liquids and follow-up with her primary care physician, hopefully this week. She is given albuterol refills for her nebulizer. She is also given Robitussin with codeine. Additional Instructions: With codeine combined with some of the other medicines you take may make you sleepy. Be careful about drinking or driving when you take the Robitussin with codeine. Follow-up with your primary care physician this week. Med/Other Pt SpecificInfo: Prescription(s) given Scripts Guaifenesin-Codeine Liq (Guaifenesin AC Liq) 100-10 Mg/5 Ml Syrp 10 ML PO Q4H Y for COUGH, #1 BOTTLE 0 Refills Prov: Micah Law MD 10/16/17 Disposition: 01 DISCHARGE HOME Condition: Stable Micah Law MD Oct 16, 2017 04:30
[2017-10-16] MEDS ORDERED: GUAISYP4 PO (04:47)
[2017-10-16] MEDS ORDERED: BENZ100 PO (04:57)
[2017-10-16 05:11] VITALS: BP 108/62; PULSE 62; RESP 18; O2SAT 97
== END 2017-10-16 05:13 | disposition home or self-care (01) ==
LOC: PHED 00:19
DX: J20.9 Acute bronchitis, unspecified (principal); J45.909 Unspecified asthma, uncomplicated; F03.90 Unspecified dementia, unspecified severity, without behavioral disturbance, psychotic disturbance, mood disturbance, and anxiety; M79.7 Fibromyalgia; K21.9 Gastro-esophageal reflux disease without esophagitis; E03.9 Hypothyroidism, unspecified; G89.29 Other chronic pain; F41.9 Anxiety disorder, unspecified; F31.9 Bipolar disorder, unspecified; F17.210 Nicotine dependence, cigarettes, uncomplicated; Z86.19 Personal history of other infectious and parasitic diseases; Z87.442 Personal history of urinary calculi; Z88.5 Allergy status to narcotic agent; Z88.1 Allergy status to other antibiotic agents; Z79.899 Other long term (current) drug therapy
CPT/HCPCS: 87804; 99283

== ENCOUNTER 2017-12-17 11:40 | Emergency (ER) | payer MEDICAID ==
[~2017-12-17] VITALS: Ht 157.5 cm; Wt 76.4 kg
[~2017-12-17 11:40] MED LIST changes: +BENZ100 PO; +GUAISYP4 PO
[2017-12-17 11:43] VITALS: BP 191/88; PULSE 76; RESP 16; TEMP 97.8; O2SAT 99
[2017-12-17] MEDS ORDERED: VIST50CA PO (12:09)
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
== END 2017-12-17 12:16 | disposition home or self-care (01) ==
LOC: PHEFT 11:40
DX: F41.9 Anxiety disorder, unspecified (principal); Z76.0 Encounter for issue of repeat prescription
CPT/HCPCS: 99283